=== PATIENT | male | born 1970 | race Caucasian/White ===

== ENCOUNTER 2019-12-05 06:32 | Emergency (ER) | payer OTHER ==
[~2019-12-05] VITALS: Ht 157.5 cm; Wt 79.4 kg
[~2019-12-05 06:32] MED LIST: AMOXICILLIN/POTASSIU PO; CELEXA 20 MG TA20 M1 PO; HYDROCODON-ACE1 EAC7 PO
[2019-12-05] MEDS ORDERED: LIPITOR 20 MG T20 M1 PO (07:01)
[2019-12-05] MEDS ORDERED: MULTIVITAMINS1 EAC7 PO (07:02)
[2019-12-05 07:05] LABS: ABSOLUTE NEUTROPHILS 6.1 thou/uL (1.4-8.2); BASOPHILS 0.8 % (0.0-2.0); EOSINOPHILS 1.9 % (0.0-3.0); HEMATOCRIT 44.3 % (42.0-52.0); HEMOGLOBIN 14.7 gm/dL (14.0-18.0); LYMPHOCYTES 29.6 % (24.0-44.0); MCH 28.6 pg (26.0-34.0); MCHC 33.1 g/dL (28.0-37.0); MCV 86.6 fL (80.0-100.0); MONOCYTES 5.4 % (1.0-8.0); PLATELET COUNT 165 thou/uL (150-400); POLYS 62.3 % (36.0-66.0); RBC 5.12 mil/uL (4.50-6.00); RDW 13.1 % (10.5-14.5); WBC 9.8 thou/uL (4.0-11.0)
[2019-12-05 07:11] LABS: ANION GAP 7 mmol/L (7-16); BUN 17 mg/dL (7-18); CALCIUM 9.2 mg/dL (8.5-10.1); CHLORIDE 101 mmol/L (98-107); CO2 29 mmol/L (21-32); CREATININE 1.4 mg/dL (0.7-1.3); GLUCOSE 137 mg/dL (74-106); POTASSIUM 3.8 mmol/L (3.5-5.1); SODIUM 137 mmol/L (136-145)
[2019-12-05 07:17] LABS: ALBUMIN 4.3 g/dL (3.4-5.0); DIRECT BILIRUBIN < 0.1 mg/dL (<0.1-0.2); LIPASE 100 U/L (73-393); SGOT 77 U/L (15-37); SGPT 175 U/L (30-65); TOTAL BILIRUBIN 0.4 mg/dL (<0.1-1.0); TOTAL PROTEIN 7.8 g/dL (6.4-8.2)
[2019-12-05 08:50] LABS: URINE BILIRUBIN NEGATIVE (Negative); URINE BLOOD 3+ (Negative); URINE CLARITY CLEAR; URINE COLOR YELLOW; URINE GLUCOSE-RANDOM* NEGATIVE (Negative); URINE KETONES NEGATIVE (Negative); URINE LEUKOCYTES-REFLEX NEGATIVE (Negative); URINE NITRITE-REFLEX NEGATIVE (Negative); URINE PROTEIN (DIPSTICK) NEGATIVE (Negative); URINE UROBILINOGEN 0.2 E.U./dl (0.2-1.0)
[2019-12-05 08:59] LABS: SQUAMOUS 0-3 Few /LPF (0-3)
[2019-12-05 09:00] LABS: BACTERIA-REFLEX 1-9 Few /HPF (None Seen); CASTS None Seen /LPF (None Seen); MUCUS 0-3 Light strn/LPF (None Seen); URIC ACID CRYSTALS 0-3 Few /LPF (None Seen); URINE RBC >20 Many /HPF (0-2)
[2019-12-05 09:01] LABS: URINE WBC-REFLEX 0-5 Rare /HPF (0-5)
[2019-12-05] MEDS ORDERED: FLOMAX0.4 MG PO (10:10)
[2019-12-05] MEDS ORDERED: ZOFRAN ODT4 MG PO (10:10)
[2019-12-05] MEDS ORDERED: NORCO 5-325 TA1 EAC1 PO (10:10)
[2019-12-05 10:32] VITALS: BP 106/50
--- NOTE | 2019-12-06 08:12 | EKG ---
[facility] [place] [address] ELECTROCARDIOGRAM REPORT Name: COSTA CLEMENS Room #: DEP [facility].#: [id number] Admission: 12/05/19 Attend Phys: Discharge: 12/05/19 Date of : 74 Report #: [id number] THIS REPORT FOR: cc: FAM - Family physician unknown FAM - Family physician unknown Oscar Walker MD 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: [facility] : 1970 Requested By: Qi Fair Order Number: [id number] MD: Oscar Walker Measurements Intervals [place] Rate: 71 P: 41 ND: 146 QRS: -9 QRSD: 101 T: 20 QT: 399 QTc: 434 Interpretive Statements Sinus rhythm RSR' in V1 or V2, right VCD Baseline wander in lead(s) V2,V3 No previous ECG available for comparison Electronically Signed On 12-06-2019 8:11:30 CDT by Oscar Walker [email or web address] <ELECTRONICALLY SIGNED> By: Oscar Walker MD, [facility] 12/06/19 [id number] Oscar Walker MD, [facility] /EPI
== END 2019-12-05 10:40 | disposition home or self-care (01) ==
LOC: ER 06:32
PROVIDERS: Emergency Medicine
DX: N20.1 Calculus of ureter (principal); R11.10 Vomiting, unspecified; Z79.899 Other long term (current) drug therapy